=== PATIENT | female | born 1990 ===

== ENCOUNTER 2019-06-27 08:29 | Emergency (ER) | payer OTHER ==
[2019-06-27] MEDS ORDERED: Ibuprofen ADULT LIQ* 600 MG/30 ML UDC PO ONE (08:46)
[2019-06-27] MEDS ORDERED: Lidocaine 2% VISCOUS* 15 ML UDC PO ONE (08:46)
--- NOTE | 2019-06-27 08:52 | ED ---
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 Patient states her pain has become worse since yesterday with an associated fever for which she has been taking Tylenol and ibuprofen. Patient's last ibuprofen dose was 200 mg at 4 AM. Patient states she also has been having difficulty with swallowing due to pain and swelling. Patient is not drooling and is in no acute respiratory distress at this time with no complaints of labored breathing. Patient also endorses nonproductive dry cough. Patient denies chest pain, abdominal pain, nausea, vomiting and diarrhea, pain with urination, rash. - History of Current Complaint Chief Complaint: EDThroatPain Time Seen by Provider: 06/27/19 08:33 Hx Obtained From: Patient Onset/Duration: Gradual Onset, Lasting Days Severity: Severe Associated Signs And Symptoms: Positive: Dysphagia. Negative: FB Sensation, Drooling, Wheezing, Hoarseness, Sinus Discomfort, Nasal Discharge Cough: Nonproductive - Allergies/Home Medications Allergies/Adverse Reactions: Allergies Allergy/AdvReac Type Severity Reaction Status Date / Time No Known Allergies Allergy Verified 06/27/19 08:45 Home Medications: Home Medications Etonogest/Eth.estradiol (Nf) [Nuvaring Vaginal Ring] 1 each VAGINAL ONCE [History Confirmed 06/27/19] PMH/Surg Hx/FS Hx/Imm Hx Infectious Disease History: No Infectious Disease History: Denies: Traveled Outside the [place] in Last 30 Days Review of Systems Positive: Fever Eyes: Negative Positive: Sore Throat, Ear Ache Cardiovascular: Negative Positive: Cough Gastrointestinal: Negative Genitourinary: Negative Musculoskeletal: Negative Skin: Negative Neurological/Mental Status: Negative Psychological: Normal All Other Systems Reviewed And Are Negative: Yes Physical Exam - Summary Physical Exam Summary: Patient is in no acute distress. No evidence of respiratory distress including no accessory muscle use labored breathing, patient is able speak in full unbroken sentences. No evidence of rash. Lungs are clear to auscultation. Inspection of the posterior pharynx reveals bilateral tonsillar swelling and erythema with tonsillar exudate. Triage Information Reviewed: Yes Vital Signs On Initial Exam: Initial Vitals Temp Pulse Resp BP Pulse Ox 98.4 F 89 20 158/98 100 06/27/19 08:41 06/27/19 08:41 06/27/19 08:41 06/27/19 08:41 06/27/19 08:41 Vital Signs Reviewed: Yes Appearance: Positive: Well-Appearing, No Pain Distress, Well-Nourished Skin: Positive: Warm, Skin Color Reflects Adequate Perfusion Eyes: Positive: EOMI, SHEILA ENT: Positive: Hearing grossly normal Respiratory/Lung Sounds: Positive: Clear to Auscultation, Breath Sounds Present Cardiovascular: Positive: RRR, S1, S2 Musculoskeletal: Positive: Strength/ROM Intact Neurological: Positive: Sensory/Motor Intact, Alert, Oriented to Person Place, Time, Normal Gait, Facial Symmetry, Speech Normal Psychiatric: Positive: Normal, Affect/Mood Appropriate AVPU Assessment: Alert Procedures - Sedation Patient Received Moderate/Deep Sedation with Procedure: No Diagnostics - Vital Signs Vital Signs Temp Pulse Resp BP Pulse Ox 06/27/19 08:41 98.4 F 89 20 158/98 100 - Laboratory Lab Statement: Any lab studies that have been ordered have been reviewed, and results considered in the medical decision making process. EENT Course/Dx - Course Course Of Treatment: Patient was evaluated in the emergency department today for fever and sore throat. Vitals noted and stable. Patient is afebrile in the emergency Department however she states she has taken ibuprofen prior to arrival. Physical exam is consistent with acute pharyngitis most likely viral. Patient is currently under investigation for Covid 19. Streptococcus group A serology was obtained which shows positive. Patient was given ibuprofen, penicillin 1.2 million units IM, Decadron in the emergency department for Streptococcus pharyngitis. Patient discharged with outpatient follow-up with instructions to remain quarantined until COVID results return. - Differential Diagnoses Differential Diagnoses: Laryngitis, Pharyngitis, Tonsilitis, Other - Mononucleosis - Diagnoses Provider Diagnoses: Acute streptococcal pharyngitis - Critical Care Time Critical Care Statement: Critical care time is provided exclusive of any time spent performing procedures. Discharge ED - Sign-Out/Discharge Documenting (check all that apply): Patient Departure - Discharge Plan Condition: Stable Disposition: HOME Patient Education Materials: Strep Throat (ED) Referrals: Lolis Matthews [employer]NAGER [Primary Care Provider] - 3 Days Additional Instructions: How can I manage my symptoms? Use lozenges, ice, soft foods, or popsicles to soothe your throat. Drink juice, milk shakes, or soup if your throat is too sore to eat solid food. Drinking liquids can also help prevent dehydration. Gargle with salt water. Mix teaspoon salt in a 1 cup of warm water and gargle. This may help reduce swelling in your throat. Do not smoke. Nicotine and other chemicals in cigarettes and cigars can cause lung damage and make your symptoms worse. Ask your healthcare provider for information if you currently smoke and need help to quit. E-cigarettes or smokeless tobacco still contain nicotine. Talk to your healthcare provider before you use these products. How do I prevent the spread of strep throat? Wash your hands often. Use soap and water. Wash your hands after you use the bathroom, change a child's diapers, or sneeze. Wash your hands before you prepare or eat food. Do not share food or drinks. Replace your toothbrush after you have taken antibiotics for 24 hours. Take ibuprofen 600 mg every 6 hours as needed for pain. Please return to this emergency department immediately should he develop any new or worsening symptoms. Please follow-up with your PCP in 3-5 days for further evaluation and management. Please continue to isolate yourself until your Covid 19 test returns. - Billing Disposition and Condition Condition: STABLE Disposition: Home - Attestation Statements Provider Attestation: I have seen the patient with the BECCA and agree with the plan and documentation below except as noted: slight 28-year-old female presenting with sore throat, strep A+. Treated with IM penicillin given patient preference for pain with swallowing pills. No respiratory distress. COVID pending Sneha Dennis MD
[2019-06-27] MEDS ORDERED: methylPREDNISolone SOD 40 MG* 1 ML VIAL IM SCH (09:00)
[2019-06-27 09:01] LABS: Rapid Strep Molecular Positive (Negative)
[2019-06-27] MEDS ORDERED: Dexamethasone TAB* 4 MG PO ONE (09:11)
[2019-06-27] MEDS ORDERED: Penicillin G Benzathine 1.2MU* 1,200,000 UNITS/2 ML SYR IM ONE (09:12)
[2019-06-27 09:39] VITALS: BP 139/89
== END 2019-06-27 09:38 | disposition home or self-care (01) ==
LOC: ED 08:29
DX: J02.0 Streptococcal pharyngitis (principal); R13.10 Dysphagia, unspecified; Z79.3 Long term (current) use of hormonal contraceptives; H92.09 Otalgia, unspecified ear; R05 Cough
CPT/HCPCS: 87651; 96372; 99283; A9270-GY; J0558; J2920; J8540